=== PATIENT | female | born 1990 | race Two or more races ===

== ENCOUNTER 2017-04-28 17:35 | Emergency (ER) | payer SELFPAY ==
[~2017-04-28] VITALS: Ht 165.1 cm; Wt 61.2 kg
[2017-04-28 17:35] VITALS: BP 129/71
[2017-04-28] MEDS ORDERED: TETRACAINE HCL/PF 0.5% UD 2 ML BOTTLE RIGHTEYE ONE (18:30)
[2017-04-28] MEDS ORDERED: FLUORESCEIN SODIUM OPHTH 1 EA STRIP OP ONE (18:30)
[2017-04-28] MEDS ORDERED: FLUORESCEIN SODIUM OPHTH 1 EA STRIP ONE (18:35)
[2017-04-28] MEDS ORDERED: TETRACAINE HCL/PF 0.5% UD 2 ML BOTTLE ONE (18:35)
== END 2017-04-28 19:11 | disposition home or self-care (01) ==
LOC: ER 17:37 → EDSEX 17:37 → ER 19:11
DX: H10.11 Acute atopic conjunctivitis, right eye (principal); F17.200 Nicotine dependence, unspecified, uncomplicated; Z41.1 Encounter for cosmetic surgery
CPT/HCPCS: 99283; A4606; Z7610